=== PATIENT | male | born 1945 | race Caucasian/White ===

== ENCOUNTER 2018-06-07 11:20 | Outpatient (CLI) | payer MEDICARE, OTHER ==
--- NOTE | 2018-06-07 14:31 | PET ---
PET CT OF BRAIN: Date: 06/07/18 HISTORY: 72-year-old male with Parkinson's disease. TECHNIQUE: PET CT of the brain was performed following the intravenous administration of 8.5 mCi [id number] in the left antecubital fossa. Imaging was performed after an uptake interval of 55 minutes. FINDINGS: No significant focal region of abnormal hyper or hypometabolism is seen. IMPRESSION: Unremarkable exam. POS: [facility]
== END 2018-06-07 11:21 | disposition home or self-care (01) ==
LOC: PET 11:20
PROVIDERS: ATTEND Psychiatry & Neurology Neurology
DX: G20 Parkinson's disease (principal)
CPT/HCPCS: 78608; A9552

== ENCOUNTER 2018-06-23 14:05 | Emergency (ER) | payer MEDICARE ==
--- NOTE | 2018-06-23 15:16 | RAD ---
LEFT KNEE 4 VIEWS: Date: 06/23/18 HISTORY: Fall. Left knee injury. FINDINGS: Joint spaces are preserved. Mild tricompartmental osteophytosis. No acute fracture, dislocation, or f luid distention of the suprapatellar bursa. Mild calcification over the popliteal vessels. IMPRESSION: No acute osseous abnormalities are demonstrated. POS: [facility]
== END 2018-06-23 15:25 | disposition home or self-care (01) ==
LOC: ERS 14:05
DX: S80.02XA Contusion of left knee, initial encounter (principal); I10 Essential (primary) hypertension; W18.30XA Fall on same level, unspecified, initial encounter

== ENCOUNTER 2018-07-12 13:44 | Emergency (ER) | payer MEDICARE, OTHER ==
[2018-07-12 14:19] LABS: Bilirubin Negative (Negative); Blood, Urine Negative (Negative); Clarity CLEAR (Clear); Glucose, Urine (Dipstick) Negative (Negative); Leukocyte Trace (Negative); Nitrite Negative (Negative); Protein, Urine (Dipstick) Negative (Neg-Trace); Specific Gravity, Urine 1.011 (1.002-1.036); Urobilinogen 0.2 mg/dL (0.2-1.0); pH, Urine 7.5 (5.0-9.0)
[2018-07-12 14:22] LABS: Bacteria/HPF None Seen HPF (None Seen); Hyaline Casts/LPF 0-3 HYALINE CAST LPF (0-3 Hyaline); RBC/HPF 0-3 HPF (0-3); Squamous Epithelial 0-3 HPF (0-3); WBC/HPF 0-3 HPF (0-3)
[2018-07-12 15:43] LABS: #Basophils 0.1 thou/uL (0.0-0.2); #Eosinphils 0.7 thou/uL (0.0-0.7); #Lymphocytes 1.2 thou/uL (1.20-3.40); #Monocytes 0.8 thou/uL (0.11-0.59); #Neutrophils 4.2 thou/uL (1.40-6.50); %Eosinophils 10.2 % (0.0-10.0); %Lymphocytes 16.9 % (21.0-51.0); %Monocytes 11.7 % (0.0-10.0); %Neutrophils 60.1 % (42.0-75.0); Hemoglobin 12.9 g/dL (14.0-18.0); Mean Corpuscular HGB CONC 31.7 g/dL (32.0-36.0); Mean Corpuscular Hemoglobin 31.8 pg (27.0-31.0); Mean Platelet Volume 7.8 fL (7.4-10.4); Platelet Count 205 thou/uL (130-400); RBC Distribution Width 11.9 % (11.5-14.5); Red Blood Cell (RBC) Count 4.05 mill/uL (4.70-6.10)
[2018-07-12 16:03] LABS: Anion Gap 10 mmol/L (10-20); BUN (Urea Nitrogen) 10 mg/dL (8.4-25.7); Calc. Creatinine Clearance 0 mL/min (70-130); Calcium 8.8 mg/dL (7.8-10.44); Carbon Dioxide 28 mmol/L (23-31); Chloride 106 mmol/L (98-107); Estimated GFR-MDRD 61; Glucose 90 mg/dL (83-110); Potassium 3.5 mmol/L (3.5-5.1); Sodium 140 mmol/L (136-145)
== END 2018-07-12 17:20 | disposition home or self-care (01) ==
LOC: ERS 13:44
DX: R31.9 Hematuria, unspecified (principal); I10 Essential (primary) hypertension; E03.9 Hypothyroidism, unspecified; F31.9 Bipolar disorder, unspecified; F03.90 Unspecified dementia, unspecified severity, without behavioral disturbance, psychotic disturbance, mood disturbance, and anxiety
CPT/HCPCS: 36415; 80048; 81003; 81015; 82274; 85025; 99283

== ENCOUNTER 2018-07-21 14:54 | Emergency (ER) | payer MEDICARE ==
--- NOTE | 2018-07-21 15:32 | RAD ---
CHEST ONE VIEW: 07/21/18 HISTORY: Chest pain. Fall. Right sided rib pain. COMPARISON: Radiograph 08/23/14. FINDINGS: The lungs are clear. No pneumothorax or effusion. The cardiac silhouette and mediastinal contours are within normal limits. No acute osseous abnormality. IMPRESSION: No acute intrathoracic abnormality. POS: [facility]
[2018-07-21 15:45] LABS: #Basophils 0.1 thou/uL (0.0-0.2); #Eosinphils 0.3 thou/uL (0.0-0.7); #Lymphocytes 1.1 thou/uL (1.20-3.40); #Monocytes 0.8 thou/uL (0.11-0.59); #Neutrophils 6.1 thou/uL (1.40-6.50); %Basophils 0.7 % (0.0-1.0); %Monocytes 9.2 % (0.0-10.0); %Neutrophils 73.2 % (42.0-75.0); Hemoglobin 13.2 g/dL (14.0-18.0); Mean Corpuscular HGB CONC 31.4 g/dL (32.0-36.0); Mean Corpuscular Hemoglobin 31.7 pg (27.0-31.0); Mean Platelet Volume 8.2 fL (7.4-10.4); Platelet Count 221 thou/uL (130-400); RBC Distribution Width 11.9 % (11.5-14.5); Red Blood Cell (RBC) Count 4.16 mill/uL (4.70-6.10); White Blood Cell (WBC) Count 8.3 thou/uL (4.8-10.8)
[2018-07-21 16:11] LABS: ALT (SGPT) Less than 7 U/L (8-55); AST (SGOT) 11 U/L (5-34); Albumin 4.2 g/dL (3.4-4.8); Alkaline Phosphatase 86 U/L (40-150); Anion Gap 15 mmol/L (10-20); BUN (Urea Nitrogen) 15 mg/dL (8.4-25.7); Bilirubin, Total 0.8 mg/dL (0.2-1.2); CK (CPK) 56 U/L (30-200); Calc. Creatinine Clearance 0 mL/min (70-130); Calcium 9.3 mg/dL (7.8-10.44); Carbon Dioxide 24 mmol/L (23-31); Chloride 105 mmol/L (98-107); Estimated GFR-MDRD 51; Globulin 2.4 g/dL (2.4-3.5); Glucose 91 mg/dL (83-110); Lipase 11 U/L (8-78); Potassium 3.6 mmol/L (3.5-5.1); Protein, Total 6.6 g/dL (5.8-8.1); Sodium 140 mmol/L (136-145)
[2018-07-21 16:14] LABS: CKMB 1.2 ng/mL (0-6.6); Troponin I Less than 0.010 ng/mL (< 0.028)
--- NOTE | 2018-07-21 18:42 | RAD ---
RIGHT RIB SERIES: 07/21/18 COMPARISON: 04/12/15. HISTORY: Fall yesterday with right rib pain. FINDINGS: Three views of the right ribs shows minimally displaced fractures of the lateral 8th, 9th, and 10th r ibs. No underlying pneumothorax or pleural thickening is seen. IMPRESSION: Right 8th through 10th rib fractures. POS: [facility]
== END 2018-07-21 17:19 | disposition home or self-care (01) ==
LOC: ERS 14:54
DX: S22.41XA Multiple fractures of ribs, right side, initial encounter for closed fracture (principal); I10 Essential (primary) hypertension; G20 Parkinson's disease; E03.9 Hypothyroidism, unspecified; F31.9 Bipolar disorder, unspecified; F03.90 Unspecified dementia, unspecified severity, without behavioral disturbance, psychotic disturbance, mood disturbance, and anxiety; Z79.899 Other long term (current) drug therapy; W18.30XA Fall on same level, unspecified, initial encounter
CPT/HCPCS: 36416; 71045; 80053; 82553; 83690; 84484; 85025; 93005

== ENCOUNTER 2019-04-19 20:27 | Inpatient (IN) | payer MEDICARE, OTHER ==
[2019-04-19] MEDS ORDERED: fentaNYL Citrate/PF 2,000 MCG in Sodium Chloride 0.9% 60 ML IV SCH (20:46)
[2019-04-19 20:59] LABS: #Basophils 0.1 thou/uL (0.0-0.2); #Eosinphils 0.3 thou/uL (0.0-0.7); #Lymphocytes 1.2 thou/uL (1.20-3.40); #Monocytes 0.7 thou/uL (0.11-0.59); #Neutrophils 4.2 thou/uL (1.40-6.50); %Basophils 1.1 % (0.0-1.0); %Eosinophils 5.3 % (0.0-10.0); %Lymphocytes 18.9 % (21.0-51.0); %Neutrophils 63.7 % (42.0-75.0); Hemoglobin 12.3 g/dL (14.0-18.0); Mean Corpuscular HGB CONC 33.4 g/dL (32.0-36.0); Mean Corpuscular Hemoglobin 33.4 pg (27.0-31.0); Mean Platelet Volume 8.2 fL (7.4-10.4); Platelet Count 200 thou/uL (130-400); RBC Distribution Width 11.7 % (11.5-14.5); Red Blood Cell (RBC) Count 3.67 mill/uL (4.70-6.10); White Blood Cell (WBC) Count 6.6 thou/uL (4.8-10.8)
--- NOTE | 2019-04-19 21:02 | RAD ---
Frontal radiograph chest: 04/19/2019 COMPARISON: 07/21/2018 HISTORY: Emergency examination, intubated patient FINDINGS: Endotracheal tube projects over the tracheal air column, terminating at the level the clavi cular heads. Nasogastric tube extends into the left upper quadrant. Lungs are clear. IMPRESSION: Lines and tubes as above.
[2019-04-19 21:05] LABS: Actual Bicarbonate (HCO3a) 20.9 mEq/L (22-28); Analyzer IN Cardio ER; Base Excess (BEa) -1.2 mEq/L (-2.0 to +3.0); CO2 Tension 27.2 mmHg (35.0-45.0); Calcium, Ionized 1.09 mmol/L (1.12-1.30); Carboxyhemoglobin (COHb) 0.3 gm% (0.0-3.0); Hemoglobin (Hb) 11.1 g/dL (14.0-18.0); O2 Tension (PaO2) 366.9 mmHg (> 70.0); Potassium - ABG Lab 3.48 mmol/L (3.70-5.30)
[2019-04-19] MEDS ORDERED: Atropine Sulfate 1 mg/10 ml Syringe ONE (21:19)
[2019-04-19 21:22] LABS: ALT (SGPT) Less than 7 U/L (8-55); AST (SGOT) 11 U/L (5-34); Acetaminophen Less than 6.0 mcg/mL (10.0-30.0); Albumin 4.1 g/dL (3.4-4.8); Alcohol Less than 10 mg/dL (Less than 10); Alkaline Phosphatase 72 U/L (40-150); Anion Gap 11 mmol/L (10-20); BUN (Urea Nitrogen) 16 mg/dL (8.4-25.7); Bilirubin, Total 0.4 mg/dL (0.2-1.2); CK (CPK) 34 U/L (30-200); Calc. Creatinine Clearance 0 mL/min (70-130); Calcium 9.1 mg/dL (7.8-10.44); Carbon Dioxide 27 mmol/L (23-31); Chloride 106 mmol/L (98-107); Estimated GFR-MDRD 65; Globulin 1.9 g/dL (2.4-3.5); Glucose 108 mg/dL (83-110); Potassium 4.2 mmol/L (3.5-5.1); Salicylate Less than 8.0 mg/dL (15.0-30.0); Sodium 140 mmol/L (136-145)
[2019-04-19 21:36] LABS: Bilirubin Negative (Negative); Blood, Urine Negative (Negative); Clarity Clear (Clear); Glucose, Urine (Dipstick) Normal (Negative); Leukocyte Negative Leu/uL (Negative); Nitrite Negative (Negative); Protein, Urine (Dipstick) Negative (Neg-Trace); Urobilinogen Normal mg/dL (Less than 2)
[2019-04-19 21:47] LABS: Amphetamine Not Detected (NotDetected); Barbiturates Screen Not Detected (NotDetected); Benzodiazepine Screen Detected (NotDetected); Cocaine Metabolite Screen Not Detected (NotDetected); Medtox Control Line Valid? VALID (VALID); Medtox Reader # READER 4; Methadone Not Detected (NotDetected); Methamphetamine Not Detected (NotDetected); Opiate Screen Not Detected (NotDetected); Oxycodone Screen Not Detected (NotDetected); Phencyclidine (PCP) Not Detected (NotDetected); THC/Cannabinoid Screen Not Detected (NotDetected); Tricyclic Screen Detected (NotDetected)
--- NOTE | 2019-04-19 22:50 | CT ---
CT HEAD WITHOUT CONTRAST: 04/19/2019 HISTORY: Altered mental status. Dementia. TECHNIQUE: Axial CT imaging at 5 mm intervals, from the vertex through the skull base, without contrast. FINDINGS: There is mild diffuse cerebral volume loss. The imaged paranasal sinuses and mastoid air cells are w ell aerated. There is no displaced calvarial fracture. No intracranial hemorrhage, midline shift, o r mass effect. IMPRESSION: No acute findings. POS: [facility]
[2019-04-19] MEDS ORDERED: Sodium Chloride 0.9% 1,000 ML IV SCH (23:19)
[2019-04-19] MEDS ORDERED: Morphine 2 MG/ML SYRINGE SLOW IVP PRN (23:20)
[2019-04-19] MEDS ORDERED: Fentanyl BOLUS 250 ML IVPB PRN (23:20)
[2019-04-19] MEDS ORDERED: DISCONTINUE PREVIOUS NARCOTIC PAIN MEDICATIONS AND BENZODIAZEPINES FS SCH (23:20)
[2019-04-19] MEDS ORDERED: Propofol 1,000 MG/100 ML VIAL IV PRN (23:20)
[2019-04-19] MEDS ORDERED: Lorazepam 2 MG/ML VIAL SLOW IVP PRN (23:20)
[2019-04-19] MEDS ORDERED: Propofol BOLUS 1,000 MG/100 ML VIAL IV PRN (23:20)
[2019-04-19] MEDS ORDERED: Ketamine 50 MG/ML (10ML VIAL) ONE (23:28)
[2019-04-19] MEDS ORDERED: Rocuronium Bromide 10 MG/ML (10ML VIAL) ONE (23:28)
[2019-04-20] MEDS: Sodium Chloride 0.9% 1,000 ML IV SCH ×4 (00:59→23:00)
--- NOTE | 2019-04-20 01:11 | HP ---
CHIEF COMPLAINT: Xanax overdose. HISTORY OF PRESENT ILLNESS: The patient is a 73-year-old Parkinson's patient who over the last several years has had progressively advancing dementia. He has a severe anxiety disorder as well. He was in his usual state of health, actually doing well until about 1930 hours this evening, that was when he was last seen to be normal and then he began to act very unusual and confessed to of taking 90 Xanax. He actually found his 's prescription of Xanax 0.5 mg and took 90 of them such that his mg dosage of Xanax was 45 mg. He began to be progressively lethargic. The EMS was called and he was brought to the emergency room at [place] where he had progressive unresponsiveness requiring intubation. Dr. Stanley was then contacted for ICU admission and management. PAST MEDICAL HISTORY: Significant for Parkinson disease, senile dementia, hypertension, severe anxiety disorder, hypothyroidism, dyslipidemia, insomnia. He has also had colon polyps, depression/bipolar disorder, obsessive-compulsive disorder, hypogonadism. PAST SURGICAL HISTORY: He has had the removal of colon polyps. He has also had reduction of his right small finger from dislocation. Colonoscopy in May 2015. PAST PSYCHIATRIC HISTORY: As mentioned above is significant for severe anxiety, previous suicide attempt, depression/bipolar disorder, obsessive-compulsive disorder. ALLERGIES: AVELOX, PENICILLINS, AND SULFA. SOCIAL HISTORY: He is , lives with his . Has no recent alcohol or drug use. No smoking history. CURRENT MEDICATIONS: On admission include; 1. Atorvastatin 40 mg at bedtime. 2. Levothyroxine 75 mcg daily. 3. Bupropion 150 mg t.i.d. 4. Buspirone 10 mg t.i.d. 5. Sinemet two tablets b.i.d. and one tablet at bedtime. 6. Donepezil 10 mg at bedtime. 7. [place] carbonate 300 mg b.i.d. 8. Namenda XR 28 mg daily. 9. Quetiapine 200 mg at bedtime. 10. Temazepam 15 mg at bedtime. 11. Trazodone 50 mg at bedtime. REVIEW OF SYSTEMS: Prior to overdose; CONSTITUTIONAL: No recent fevers, chills, malaise. HEENT: No significant drainage from eyes, ears, nose, or throat. No sores or lesions. NECK: Has been supple. CHEST: Denied shortness of breath or coughing. CARDIOVASCULAR: Denied palpitations or chest pain. GI: There was no nausea, vomiting, or diarrhea. : Denied dysuria, frequency, or urgency. MUSCULOSKELETAL: General weakness in the major muscle groups, but no significant complaints. SKIN: No acute rashes or lesions. NEUROLOGIC: Denied any headaches, altered mental status, hypoesthesia, or anesthesia. PSYCHIATRIC: His states that he was in his usual state of health, actually doing well with dementia supposedly in remission. Generalized anxiety, well controlled. PHYSICAL EXAMINATION: At the time of admission; VITAL SIGNS: Blood pressure 107/71, pulse 60, respirations 18, temperature 98. Pain scale unable to determine. O2 saturation 95% on 4 L. GENERAL: This is a well-developed, well-nourished, elderly male who is currently intubated and unable to respond. He does resist examination of his eyes. HEENT: Normocephalic, atraumatic. Pupils are 1 to 2 mm with diminished reactivity. Arcus senilis bilaterally. TMs, nares clear. Pharynx with ET tube in place. CHEST: With good breath sounds bilaterally. HEART: Regular rate and rhythm. ABDOMEN: Unable to appreciate organomegaly. EXTREMITIES: Without clubbing or cyanosis. SKIN: Without unusual rashes or lesions. NEUROLOGIC: He is sedated, unable to respond at this time. LABORATORY DATA: On admission; WBC 6.6, hemoglobin 12.3, hematocrit 36.7, platelets 200. Sodium 140, potassium 4.2, chloride 106, CO2 of 27, BUN is 16, creatinine 1.10 with a GFR of 65. Lactic acid 0.7. Liver functions unremarkable. Troponins negative. Urinalysis unremarkable. Toxicology screen with tricyclics and benzos detected. ABG showed pH of 7.5, pCO2 27, PO2 367. Chest x-ray is unremarkable. CT scan shows no acute infarcts or hemorrhage or lesions. ASSESSMENT: 1. Xanax overdose. 2. Advanced dementia. 3. Parkinson disease. 4. Generalized anxiety disorder with bipolar disorder and history of previous suicide attempt. 5. Hypothyroidism. PLAN: Plan will be to continue his intubation into ICU until the benzodiazepines wear off. We will have pulmonary consultation and ICU 911 emergency dispatcher to participate in his care and we will serially re-evaluate him. Job ID: [id number]
[2019-04-20 05:10] LABS: #Basophils 0.1 thou/uL (0.0-0.2); #Eosinphils 0.2 thou/uL (0.0-0.7); #Monocytes 1.3 thou/uL (0.11-0.59); #Neutrophils 6.6 thou/uL (1.40-6.50); %Basophils 0.8 % (0.0-1.0); %Lymphocytes 19.4 % (21.0-51.0); %Monocytes 12.5 % (0.0-10.0); %Neutrophils 65.4 % (42.0-75.0); Hemoglobin 12.4 g/dL (14.0-18.0); Mean Corpuscular HGB CONC 32.8 g/dL (32.0-36.0); Mean Corpuscular Hemoglobin 33.2 pg (27.0-31.0); Mean Platelet Volume 8.1 fL (7.4-10.4); Platelet Count 180 thou/uL (130-400); RBC Distribution Width 11.7 % (11.5-14.5); Red Blood Cell (RBC) Count 3.73 mill/uL (4.70-6.10); White Blood Cell (WBC) Count 10.1 thou/uL (4.8-10.8)
[2019-04-20 05:42] LABS: Anion Gap 10 mmol/L (10-20); BUN (Urea Nitrogen) 14 mg/dL (8.4-25.7); Calc. Creatinine Clearance 70 mL/min (70-130); Calcium 8.5 mg/dL (7.8-10.44); Carbon Dioxide 24 mmol/L (23-31); Chloride 110 mmol/L (98-107); Estimated GFR-MDRD 77; Glucose 90 mg/dL (83-110); Potassium 4.3 mmol/L (3.5-5.1); Sodium 140 mmol/L (136-145)
[2019-04-20 07:04] LABS: Base Excess (BEa) 0.5 mEq/L (-2.0 to +3.0); CO2 Tension 39.6 mmHg (35.0-45.0); Calcium, Ionized 1.11 mmol/L (1.12-1.30); Carboxyhemoglobin (COHb) 0.7 gm% (0.0-3.0); Hemoglobin (Hb) 11.8 g/dL (14.0-18.0); O2 Tension (PaO2) 134.2 mmHg (> 70.0); Potassium - ABG Lab 3.69 mmol/L (3.70-5.30); pH, Arterial 7.42 (7.35-7.45)
[2019-04-20 07:31] LABS: Puncture Site L.R.
[2019-04-20] MEDS ORDERED: hydrALAZINE 20 MG/ML VIAL SLOW IVP PRN (07:41)
--- NOTE | 2019-04-20 08:23 | RAD ---
SINGLE VIEW CHEST: Date: 04/20/19 COMPARISON: 04/19/19. HISTORY: Ventilated patient with respiratory failure. FINDINGS: Single view of the chest shows a normal sized cardiomediastinal silhouette. The endotracheal tube and NG tube are unchanged in position. There is no evidence of consolidation, mass, or pleural effusion. IMPRESSION: No evidence of acute cardiopulmonary disease. POS: [facility]
--- NOTE | 2019-04-20 14:29 | CON ---
DATE OF CONSULTATION: 04/20/2019 HISTORY OF PRESENT ILLNESS: Mr. Gann is a 73-year-old male, who apparently consumed a large volume of Xanax yesterday, mechanically ventilated. I am consulted because of his presence in the critical care unit. PAST MEDICAL HISTORY: Remarkable for; 1. Parkinson disease with dementia. 2. Hypertension. 3. Hypothyroidism. 4. Lipid disorder. 5. History of colon polyps. 6. History of previous suicide attempt. 7. History of depression and anxiety as well as obsessive-compulsive disorder according to his primary care physician. SOCIAL HISTORY: Nonsmoker and nondrinker. ALLERGIES: REPORTS AVELOX, PENICILLIN, AND SULFA ALLERGIES. MEDICATIONS: Have been reviewed. REVIEW OF SYSTEMS: Otherwise negative. PHYSICAL EXAMINATION: GENERAL: He is obtunded. He will open his eyes, but quickly closes them. He moves all 4 extremities with a sternal rub. VITAL SIGNS: He is afebrile, heart rate 60, blood pressure 159/84, and respiratory rate 18. HEENT: Pupils are equal and reactive. Sclerae are anicteric. NECK: Supple. LUNGS: Clear. HEART: Regular rhythm. S1 and S2 are normal. ABDOMEN: Soft and nontender. EXTREMITIES: Without clubbing, cyanosis, or edema. LABORATORY DATA: Chest x-ray shows no infiltrates. Blood gas; pH of 7.42, CO2 of 39, pO2 of 134. IMPRESSION: Prescription drug overdose. PLAN: Mechanical ventilation until these drugs are metabolized. CRITICAL CARE TIME: 30 minutes. Job ID: [id number] MTDD
[2019-04-21 04:33] LABS: Band 1 % (5-11); Hemoglobin 12.5 g/dL (14.0-18.0); Hypochromia SLIGHT = 6-15 cells (100X) (0-5/hpf); Lymphocytes 16 % (21-51); MDiff Complete? YES; Macrocytosis SLIGHT = 6-15 cells (100X) (0-5/hpf); Mean Corpuscular HGB CONC 32.3 g/dL (32.0-36.0); Mean Corpuscular Hemoglobin 33.3 pg (27.0-31.0); Mean Platelet Volume 7.8 fL (7.4-10.4); Monocytes 5 % (0-10); Neutrophil 78 % (42-75); Platelet Count 167 thou/uL (130-400); Platelet Morphology Comment Appears Increased; RBC Distribution Width 11.8 % (11.5-14.5); Red Blood Cell (RBC) Count 3.74 mill/uL (4.70-6.10); White Blood Cell (WBC) Count 10.5 thou/uL (4.8-10.8)
[2019-04-21 04:37] LABS: Anion Gap 12 mmol/L (10-20); BUN (Urea Nitrogen) 11 mg/dL (8.4-25.7); Calc. Creatinine Clearance 69 mL/min (70-130); Calcium 8.6 mg/dL (7.8-10.44); Carbon Dioxide 21 mmol/L (23-31); Chloride 113 mmol/L (98-107); Estimated GFR-MDRD 75; Glucose 84 mg/dL (83-110); Potassium 3.9 mmol/L (3.5-5.1); Sodium 142 mmol/L (136-145)
[2019-04-21] MEDS: Sodium Chloride 0.9% 1,000 ML IV SCH ×3 (06:29→22:35)
[2019-04-21 07:13] LABS: Actual Bicarbonate (HCO3a) 22.5 mEq/L (22-28); Base Excess (BEa) -3.3 mEq/L (-2.0 to +3.0); Calcium, Ionized 1.15 mmol/L (1.12-1.30); Carboxyhemoglobin (COHb) 1.1 gm% (0.0-3.0); Hemoglobin (Hb) 12.2 g/dL (14.0-18.0); O2 Tension (PaO2) 74.2 mmHg (> 70.0); Potassium - ABG Lab 3.59 mmol/L (3.70-5.30); pH, Arterial 7.34 (7.35-7.45)
[2019-04-21 07:15] LABS: Puncture Site L.R.
[2019-04-21] MEDS ORDERED: Communication Order-Pharmacy FS PRN (07:53)
[2019-04-21 08:24] LABS: #Basophils 0.1 thou/uL (0.0-0.2); #Eosinphils 0.2 thou/uL (0.0-0.7); #Lymphocytes 2.2 thou/uL (1.20-3.40); #Monocytes 1.7 thou/uL (0.11-0.59); #Neutrophils 8.7 thou/uL (1.40-6.50); %Basophils 0.6 % (0.0-1.0); %Eosinophils 1.2 % (0.0-10.0); %Lymphocytes 17.3 % (21.0-51.0); %Monocytes 13.5 % (0.0-10.0); %Neutrophils 67.4 % (42.0-75.0); Hemoglobin 13.1 g/dL (14.0-18.0); Mean Corpuscular HGB CONC 31.5 g/dL (32.0-36.0); Mean Corpuscular Hemoglobin 32.8 pg (27.0-31.0); Platelet Count 196 thou/uL (130-400); RBC Distribution Width 11.9 % (11.5-14.5); Red Blood Cell (RBC) Count 3.99 mill/uL (4.70-6.10); White Blood Cell (WBC) Count 12.9 thou/uL (4.8-10.8)
[2019-04-21] MEDS ORDERED: Pancrelipase DR 12000 1 CAP FS PRN ×2 (08:28→20:06)
[2019-04-21] MEDS ORDERED: Sodium Bicarbonate Tab 325 MG TAB PER TUBE PRN ×2 (08:28→20:06)
[2019-04-21 08:53] LABS: Calcium 8.8 mg/dL (7.8-10.44); Chloride 111 mmol/L (98-107); Sodium 140 mmol/L (136-145)
[2019-04-21] MEDS: buPROPion 75 MG TAB PER TUBE SCH ×3 (09:00→20:33)
[2019-04-21] MEDS: busPIRone HCl 10 MG TAB PER TUBE SCH ×3 (09:00→20:33)
[2019-04-21 09:02] LABS: Anion Gap 15 mmol/L (10-20); BUN (Urea Nitrogen) 10 mg/dL (8.4-25.7); Calc. Creatinine Clearance 67 mL/min (70-130); Carbon Dioxide 18 mmol/L (23-31); Estimated GFR-MDRD 71; Glucose 75 mg/dL (83-110)
--- NOTE | 2019-04-21 09:12 | RAD ---
CHEST 1 VIEW: Date: 04/21/19 HISTORY: Intubated. Dyspnea. Follow-up. COMPARISON: 04/20/19. FINDINGS: Cardiac silhouette is magnified by projection. Pulmonary vasculature unremarkable. Patient slightly r otated rightward. Lines and tubes appear unchanged in position. No evidence of pneumothorax. site monitor leads overlie the chest. IMPRESSION: Stable radiographic appearance of the chest. POS: [facility]
--- NOTE | 2019-04-21 10:04 | PRG ---
DATE OF SERVICE: 04/21/2019 SUBJECTIVE: Eugene Gann remains intubated. OBJECTIVE: VITAL SIGNS: Heart rate in the 60s, blood pressure 122/68, respiratory rate is in the teens. GENERAL: He is very tremulous. LUNGS: Clear. HEART: Regular rhythm. ABDOMEN: Soft. EXTREMITIES: Without edema or asymmetry. LABORATORY DATA: White count 12.9, hemoglobin 13.1, platelets 196. Sodium 140, potassium 4, chloride 111, bicarb 18, BUN 10, creatinine 1.02. Chest x-ray is unchanged. No infiltrates. IMPRESSION: Respiratory failure associated with prescription drug overdose, Xanax. I will start Precedex drip to see if this leads to improvement of his tremor. With dementia and Parkinson disease, he should be a DNR. Hopefully, Dr. Stanley, who is his primary care provider will address this with family. He may be weanable later today or tomorrow morning. Critical care time, 30 minutes. Job ID: [id number]
[2019-04-21] MEDS ORDERED: Acetaminophen 650 MG/20.3 ML UDCUP PER TUBE PRN (10:21)
[2019-04-21] MEDS: Carbidopa/Levodopa 25-100 mg Tablet PO SCH ×2 (11:26→15:00)
[2019-04-21] MEDS: Lithium Carbonate 150 MG CAP PER TUBE SCH ×2 (11:27→20:33)
[2019-04-21] MEDS: Entacapone 200 mg Tablet PO SCH ×2 (11:29→14:27)
[2019-04-21 12:13] LABS: #Lymphocytes 0.7 thou/uL (1.20-3.40); #Monocytes 1.2 thou/uL (0.11-0.59); #Neutrophils 9.3 thou/uL (1.40-6.50); %Basophils 0.1 % (0.0-1.0); %Eosinophils 0.2 % (0.0-10.0); %Lymphocytes 6.6 % (21.0-51.0); %Monocytes 10.9 % (0.0-10.0); %Neutrophils 82.2 % (42.0-75.0); Hemoglobin 11.6 g/dL (14.0-18.0); Mean Corpuscular HGB CONC 33.2 g/dL (32.0-36.0); Mean Corpuscular Hemoglobin 33.7 pg (27.0-31.0); Mean Platelet Volume 7.7 fL (7.4-10.4); Platelet Count 160 thou/uL (130-400); RBC Distribution Width 11.8 % (11.5-14.5); Red Blood Cell (RBC) Count 3.45 mill/uL (4.70-6.10); White Blood Cell (WBC) Count 11.3 thou/uL (4.8-10.8)
[2019-04-21] MEDS ORDERED: DC Sedation Protocol FS ONE (15:01)
--- NOTE | 2019-04-21 19:41 | RAD ---
XR Abdomen 1 View/KUB History: Dobbhoff tube placement Comparison: None. Findings: Weighted feeding tube tip projects over the gastric fundus. No dilated air-filled loops of large or small bowel. Evaluation for free air is limited without an up right exam. Impression: Dobbhoff tube tip projecting over the gastric fundus.
[2019-04-22 05:14] LABS: Band 2 % (5-11); Elliptocytes SLIGHT = 2-5 cells (100X) (0-1/hpf); Hemoglobin 10.3 g/dL (14.0-18.0); Hypochromia SLIGHT = 6-15 cells (100X) (0-5/hpf); Lymphocytes 18 % (21-51); MDiff Complete? YES; Macrocytosis SLIGHT = 6-15 cells (100X) (0-5/hpf); Mean Corpuscular HGB CONC 33.5 g/dL (32.0-36.0); Mean Corpuscular Hemoglobin 33.8 pg (27.0-31.0); Mean Platelet Volume 7.5 fL (7.4-10.4); Monocytes 14 % (0-10); Neutrophil 66 % (42-75); Platelet Count 136 thou/uL (130-400); Platelet Morphology Comment Appears Adequate; RBC Distribution Width 11.7 % (11.5-14.5); Red Blood Cell (RBC) Count 3.05 mill/uL (4.70-6.10); White Blood Cell (WBC) Count 8.8 thou/uL (4.8-10.8)
[2019-04-22 05:22] LABS: Anion Gap 8 mmol/L (10-20); BUN (Urea Nitrogen) 16 mg/dL (8.4-25.7); Calc. Creatinine Clearance 74 mL/min (70-130); Carbon Dioxide 21 mmol/L (23-31); Chloride 115 mmol/L (98-107); Estimated GFR-MDRD 79; Glucose 126 mg/dL (83-110); Potassium 3.4 mmol/L (3.5-5.1); Sodium 141 mmol/L (136-145)
[2019-04-22] MEDS: Sodium Chloride 0.9% 1,000 ML IV SCH ×2 (05:41→16:28)
[2019-04-22] MEDS ORDERED: Levothyroxine Sodium 50 MCG TAB PER TUBE SCH (06:00)
--- NOTE | 2019-04-22 07:55 | RAD ---
EXAM: Single view of the chest HISTORY: Ventilated patient with respiratory failure COMPARISON: 04/21/2019 FINDINGS: Single view of the chest shows a normal sized cardiomediastinal silhouette. A Dobbhoff tub e courses off the inferior aspect of the film. There is no evidence of consolidation, mass, or pleural effusion. Degenerative changes are seen in the spine. IMPRESSION: No evidence of acute cardiopulmonary disease
[2019-04-22] MEDS: Lithium Carbonate 150 MG CAP PER TUBE SCH ×2 (09:56→20:07)
[2019-04-22] MEDS: Carbidopa/Levodopa 25-100 mg Tablet PO SCH ×3 (09:57→20:08)
[2019-04-22] MEDS: buPROPion 75 MG TAB PER TUBE SCH ×3 (09:58→20:07)
[2019-04-22] MEDS: busPIRone HCl 10 MG TAB PER TUBE SCH ×3 (10:02→20:07)
--- NOTE | 2019-04-22 10:02 | PRG ---
DATE OF SERVICE: 04/22/2019 SUBJECTIVE: The patient seems to be doing well. He is talkative. He has pulled his NG tube out. He seems to be swallowing okay when I gave him water. OBJECTIVE: VITAL SIGNS: On exam, his temperature is 99.1, pulse 60, blood pressure 123/68. HEENT: Unremarkable. NECK: No JVD. CHEST: Fairly clear. CARDIAC: S1 and S2, regular. ABDOMEN: Soft. EXTREMITIES: No edema. LABORATORY DATA: White blood cell count 8, hematocrit 30, platelet count 136. Sodium 141, potassium 3.4, chloride 115, CO2 of 21, BUN 16, creatinine 0.9, glucose 126. His chest x-ray is clear. ASSESSMENT: 1. Status post respiratory failure from unintentional overdose with Xanax. 2. Parkinson disease. 3. Improved swallowing. PLAN: He can be transferred out to the floor. He can restart his Parkinson's medications orally. I will stop his IV fluids. No further Pulmonary recommendations. We are available as needed. Job ID: [id number]
[2019-04-22] MEDS: Entacapone 200 mg Tablet PO SCH ×3 (15:26→20:07)
[2019-04-23] MEDS ORDERED: Levothyroxine Sodium 50 MCG TAB PO SCH ×2 (06:00→22:57)
[2019-04-23 06:08] LABS: #Eosinphils 0.4 thou/uL (0.0-0.7); #Neutrophils 4.9 thou/uL (1.40-6.50); %Basophils 0.4 % (0.0-1.0); %Eosinophils 5.3 % (0.0-10.0); %Lymphocytes 13.5 % (21.0-51.0); %Monocytes 13.7 % (0.0-10.0); %Neutrophils 67.2 % (42.0-75.0); Hemoglobin 11.1 g/dL (14.0-18.0); Mean Corpuscular HGB CONC 32.7 g/dL (32.0-36.0); Mean Corpuscular Hemoglobin 32.9 pg (27.0-31.0); Mean Platelet Volume 7.8 fL (7.4-10.4); Platelet Count 162 thou/uL (130-400); RBC Distribution Width 11.6 % (11.5-14.5); Red Blood Cell (RBC) Count 3.38 mill/uL (4.70-6.10); White Blood Cell (WBC) Count 7.3 thou/uL (4.8-10.8)
[2019-04-23 06:27] LABS: Anion Gap 10 mmol/L (10-20); BUN (Urea Nitrogen) 11 mg/dL (8.4-25.7); Calc. Creatinine Clearance 80 mL/min (70-130); Calcium 8.8 mg/dL (7.8-10.44); Carbon Dioxide 24 mmol/L (23-31); Chloride 115 mmol/L (98-107); Estimated GFR-MDRD 89; Glucose 86 mg/dL (83-110); Sodium 146 mmol/L (136-145)
[2019-04-23 06:30] LABS: Potassium 2.9 mmol/L (3.5-5.1)
[2019-04-23] MEDS ORDERED: Potassium Chloride 20 MEQ TAB PO SCH (07:00)
[2019-04-23] MEDS: buPROPion 75 MG TAB PO SCH ×3 (08:19→21:05)
[2019-04-23] MEDS: busPIRone HCl 10 MG TAB PO SCH ×3 (08:20→21:05)
[2019-04-23] MEDS: Entacapone 200 mg Tablet PO SCH ×3 (08:21→21:05)
[2019-04-23] MEDS ORDERED: Amlodipine 5 MG TAB PO SCH (09:45)
[2019-04-23] MEDS: Lithium Carbonate 150 MG CAP PO SCH ×2 (10:23→21:04)
[2019-04-23] MEDS: Carbidopa/Levodopa 25-100 mg Tablet PO SCH ×3 (10:23→21:04)
[2019-04-23] MEDS: Potassium Chloride 20 MEQ TAB PO SCH ×2 (12:48→17:56)
[2019-04-23] MEDS: Acetaminophen 650 MG/20.3 ML UDCUP PO PRN (21:05)
[2019-04-24] MEDS: Acetaminophen 650 MG/20.3 ML UDCUP PO PRN ×3 (03:12→22:39)
[2019-04-24] MEDS: Levothyroxine Sodium 75 MCG TAB PO SCH (05:39)
[2019-04-24 06:57] LABS: #Eosinphils 0.3 thou/uL (0.0-0.7); #Neutrophils 6.9 thou/uL (1.40-6.50); %Basophils 0.3 % (0.0-1.0); %Eosinophils 3.2 % (0.0-10.0); %Monocytes 11.3 % (0.0-10.0); %Neutrophils 74.1 % (42.0-75.0); Mean Corpuscular HGB CONC 32.2 g/dL (32.0-36.0); Mean Corpuscular Volume 99.2 fL (78.0-98.0); Mean Platelet Volume 7.9 fL (7.4-10.4); Platelet Count 201 thou/uL (130-400); RBC Distribution Width 11.6 % (11.5-14.5); Red Blood Cell (RBC) Count 3.75 mill/uL (4.70-6.10); White Blood Cell (WBC) Count 9.2 thou/uL (4.8-10.8)
[2019-04-24 07:19] LABS: Anion Gap 14 mmol/L (10-20); BUN (Urea Nitrogen) 13 mg/dL (8.4-25.7); Calc. Creatinine Clearance 74 mL/min (70-130); Calcium 9.3 mg/dL (7.8-10.44); Carbon Dioxide 20 mmol/L (23-31); Chloride 112 mmol/L (98-107); Estimated GFR-MDRD 80; Glucose 88 mg/dL (83-110); Potassium 3.3 mmol/L (3.5-5.1); Sodium 143 mmol/L (136-145)
[2019-04-24] MEDS: Potassium Chloride 20 MEQ TAB PO SCH ×3 (08:00→17:15)
[2019-04-24] MEDS: busPIRone HCl 10 MG TAB PO SCH ×3 (08:02→21:54)
[2019-04-24] MEDS: Amlodipine 5 MG TAB PO SCH (08:02)
[2019-04-24] MEDS: Entacapone 200 mg Tablet PO SCH ×3 (08:02→21:55)
[2019-04-24] MEDS: buPROPion 75 MG TAB PO SCH ×3 (08:02→21:54)
[2019-04-24] MEDS: Carbidopa/Levodopa 25-100 mg Tablet PO SCH ×3 (08:13→21:54)
[2019-04-24] MEDS: Lithium Carbonate 150 MG CAP PO SCH ×2 (08:13→21:55)
[2019-04-24] MEDS ORDERED: Donepezil HCl 10 MG TAB PO SCH ×2 (09:00→21:00)
[2019-04-24] MEDS: Nitrofurantoin Monohyd/M-Cryst 100 MG CAP PO SCH ×2 (12:29→21:55)
[2019-04-24] MEDS: Phenazopyridine HCl 97.5 MG TABLET PO SCH ×4 (12:29→21:54)
[2019-04-24 14:28] VITALS: BMI 23.4
[2019-04-24 20:03] LABS: Bilirubin Negative (Negative); Blood, Urine Trace (Negative); Leukocyte Small (Negative)
[2019-04-24 20:07] LABS: Clarity Clear (Clear); Nitrite Unable to Interpret (Negative); Protein, Urine (Dipstick) Unable to Interpret mg/dL (Neg-Trace)
[2019-04-24 20:08] LABS: Glucose, Urine (Dipstick) Unable to Interpret mg/dL (Negative)
[2019-04-24 20:12] LABS: Bacteria/HPF 4+ HPF (None Seen); RBC/HPF 0-3 HPF (0-3); Squamous Epithelial None Seen HPF (0-3); WBC/HPF Greater than 50 HPF (0-3)
[2019-04-25] MEDS: Levothyroxine Sodium 75 MCG TAB PO SCH (06:07)
[2019-04-25] MEDS: Lithium Carbonate 150 MG CAP PO SCH (09:44)
[2019-04-25] MEDS: buPROPion 75 MG TAB PO SCH (09:45)
[2019-04-25] MEDS: Carbidopa/Levodopa 25-100 mg Tablet PO SCH (09:45)
[2019-04-25] MEDS: Nitrofurantoin Monohyd/M-Cryst 100 MG CAP PO SCH (09:46)
[2019-04-25] MEDS: Amlodipine 5 MG TAB PO SCH (09:46)
[2019-04-25] MEDS: Entacapone 200 mg Tablet PO SCH (09:46)
[2019-04-25] MEDS: busPIRone HCl 10 MG TAB PO SCH (09:50)
[2019-04-25] MEDS: Phenazopyridine HCl 97.5 MG TABLET PO SCH (09:50)
[2019-04-25] MEDS: Potassium Chloride 20 MEQ TAB PO SCH (09:52)
[2019-04-25 11:23] VITALS: BP 136/84; TEMP 98.6
[2019-04-25] MEDS ORDERED: Potassium Chloride 20 MEQ TAB PO SCH (17:00)
== END 2019-04-25 12:51 | DRG 917 ==
LOC: ERS 20:27 → CCU 23:12 → T4-B 04-22 13:35
PROVIDERS: ADMIT Specialist; ATTEND Specialist
PROC: 0BH17EZ Insertion of Endotracheal Airway into Trachea, Via Natural or Artificial Opening (ICD-10-PCS; principal; 2019-04-19)
PROC: 5A1935Z Respiratory Ventilation, Less than 24 Consecutive Hours (ICD-10-PCS; 2019-04-19)
DX: T42.4X1A Poisoning by benzodiazepines, accidental (unintentional), initial encounter (principal); J96.90 Respiratory failure, unspecified, unspecified whether with hypoxia or hypercapnia; F02.81 Dementia in other diseases classified elsewhere, unspecified severity, with behavioral disturbance; Z66 Do not resuscitate; F03.90 Unspecified dementia, unspecified severity, without behavioral disturbance, psychotic disturbance, mood disturbance, and anxiety; G20 Parkinson's disease; F41.9 Anxiety disorder, unspecified; I10 Essential (primary) hypertension; E03.9 Hypothyroidism, unspecified; E78.5 Hyperlipidemia, unspecified; G47.00 Insomnia, unspecified; F32.9 Major depressive disorder, single episode, unspecified; F42.9 Obsessive-compulsive disorder, unspecified; Z90.49 Acquired absence of other specified parts of digestive tract; Z86.010 Personal history of colon polyps; Z88.0 Allergy status to penicillin; Z88.2 Allergy status to sulfonamides; Z88.8 Allergy status to other drugs, medicaments and biological substances
CPT/HCPCS: 31500; 36415; 70450; 71045; 74018; 80048; 80053; 80178; 80306; 80307; 81001; 81003; 82274; 82533; 82550; 82805; 83605; 83735; 84443; 84484; 85007; 85025; 85027; 87040; 87077; 87086; 87186; 93005; 94002; 94003; 94760; 96361; 96374; 96375; J0461; J3010; J3490